=== PATIENT | female | born 1945 | race Caucasian/White ===

== ENCOUNTER → 2016-11-26 | Outpatient (CLI) | payer MEDICARE ==
--- NOTE | 2016-11-30 09:07 | MM ---
Reason for exam: screening (asymptomatic). Last mammogram was performed 1 year and 4 months ago. History: Patient is postmenopausal and history of other cancer. Family history of premenopausal breast cancer in paternal cousin at age 16. Excisional biopsy of the left breast, August 10, 2007. Benign excisional biopsy of the left breast, May 30, 1998. Excisional biopsy of the left breast, May 30, 1998. Took estrogen for 15 years 2 months beginning at age 47. Physical Findings: A clinical breast exam by your physician is recommended on an annual basis and results should be correlated with mammographic findings. MG Screening Mammo w CAD Bilateral CC and MLO view(s) were taken. Prior study comparison: August 01, 2015, bilateral MG 3d screening mammo w/cad. May 07, 2014, bilateral MG screening mammo w CAD. There are scattered fibroglandular densities. No significant changes when compared with prior studies. ASSESSMENT: Negative, BI-RAD 1 RECOMMENDATION: Routine screening mammogram of both breasts in 1 year.
== END | disposition home or self-care (01) ==
LOC: RADMAMWWP 14:25
PROVIDERS: ATTEND Family Medicine
DX: Z12.31 Encounter for screening mammogram for malignant neoplasm of breast (principal)

== ENCOUNTER → 2017-06-09 | Outpatient (CLI) | payer MEDICARE ==
--- NOTE | 2017-06-28 14:51 | EM ---
EVENT MONITOR The patient was monitored between June 09 and June 22, 2017. The rhythm strip available showed a sinus mechanism with episode of sinus tachycardia. This there was no evidence of ventricular ectopic activity or significant pauses. Single PACs were noted. TRISH / HARRIET: [id number] /
== END | disposition home or self-care (01) ==
LOC: RADECHMAIN 11:42
PROVIDERS: ATTEND Family Medicine
DX: I49.1 Atrial premature depolarization (principal)
CPT/HCPCS: 93270; 93271

== ENCOUNTER → 2017-12-27 | Outpatient (CLI) | payer MEDICARE ==
--- NOTE | 2017-12-29 11:05 | MM ---
Reason for exam: screening (asymptomatic). Last mammogram was performed 1 year and 1 month ago. History: Patient is postmenopausal and history of other cancer. Family history of premenopausal breast cancer in paternal cousin at age 16. Excisional biopsy of the left breast, August 10, 2007. Benign excisional biopsy of the left breast, May 30, 1998. Excisional biopsy of the left breast, May 30, 1998. Took estrogen for 15 years 2 months beginning at age 47. Physical Findings: A clinical breast exam by your physician is recommended on an annual basis and results should be correlated with mammographic findings. MG 3D Screening Mammo W/Cad Bilateral CC and MLO view(s) were taken. Prior study comparison: November 26, 2016, bilateral MG screening mammo w CAD. August 01, 2015, bilateral MG 3d screening mammo w/cad. There are scattered fibroglandular densities. Benign appearing bilateral calcifications. No suspicious abnormality. Post biopsy change on the left breast. No significant changes when compared with prior studies. ASSESSMENT: Benign, BI-RAD 2 RECOMMENDATION: Routine screening mammogram of both breasts in 1 year.
== END | disposition home or self-care (01) ==
LOC: RADMAMWWP 13:22
PROVIDERS: ATTEND Specialist
DX: Z12.31 Encounter for screening mammogram for malignant neoplasm of breast (principal)
CPT/HCPCS: 77063; 77067

== ENCOUNTER → 2019-01-24 | Outpatient (CLI) | payer MEDICARE ==
--- NOTE | 2019-01-26 13:45 | MM ---
Reason for exam: screening (asymptomatic). Last mammogram was performed 1 year and 1 month ago. History: Patient is postmenopausal and has history of other cancer at age 49. Family history of premenopausal breast cancer in paternal cousin at age 16. Excisional biopsy of the left breast, August 10, 2007. Benign excisional biopsy of the left breast, May 30, 1998. Excisional biopsy of the left breast, May 30, 1998. Took estrogen for 15 years 2 months beginning at age 47. Physical Findings: A clinical breast exam by your physician is recommended on an annual basis and results should be correlated with mammographic findings. MG 3D Screening Mammo W/Cad Bilateral CC and MLO view(s) were taken. Prior study comparison: December 27, 2017, bilateral MG 3d screening mammo w/cad. November 26, 2016, bilateral MG screening mammo w CAD. There are scattered fibroglandular densities. Stable benign calcifications. There is no discrete abnormality. No significant changes when compared with prior studies. ASSESSMENT: Benign, BI-RAD 2 RECOMMENDATION: Routine screening mammogram of both breasts in 1 year.
== END | disposition home or self-care (01) ==
LOC: RADMAMWWP 13:18
PROVIDERS: ATTEND Specialist
DX: Z12.31 Encounter for screening mammogram for malignant neoplasm of breast (principal)
CPT/HCPCS: 77063; 77067

== ENCOUNTER → 2019-01-31 | Outpatient (CLI) | payer MEDICARE ==
[2019-01-31 14:41] VITALS: BP 144/75; PULSE 80; TEMP 98.2; BMI 27.0
--- NOTE | 2019-01-31 21:13 | P.BASOAP ---
Subjective Progress Note Date: 01/31/19 Principal diagnosis: Morbid obesity Patient returns for evaluation. Last seen in May. She is 3 years postop. Slight weight gain. 10 pounds since this August. Some reflux at times. Takes Carafate on an as-needed basis along with her omeprazole. Objective - Vital Signs Vital signs: Vital Signs Temp 98.2 F 01/31/19 14:27 Pulse 80 01/31/19 14:27 Resp BP 144/75 01/31/19 14:27 Pulse Ox Intake & Output 01/31/19 01/31/19 02/01/19 06:59 18:59 06:59 Weight 80.739 kg - Exam Abdomen: Soft, nontender, nondistended Assessment/Plan (1) Morbid obesity Narrative/Plan: Patient doing fairly well after previously gastrectomy. Continue dietary and exercise regimen. We'll refill prescription for Carafate to be used when necessary. Follow-up 3-6 months. Plan: Date: 01/31/19 Initial Weight: Initial BMI: Current Weight: 80.739 kg Current BMI: 27.0 Type of Surgery: Total Volume in Band: Previous Volume: Volume Removed: Volume Added: Band Size:
== END | disposition home or self-care (01) ==
LOC: BARWHC3 14:06
PROVIDERS: ATTEND Surgery
DX: E66.01 Morbid (severe) obesity due to excess calories (principal); Z68.27 Body mass index [BMI] 27.0-27.9, adult
CPT/HCPCS: 99201

== ENCOUNTER 2019-07-21 14:04 | Observation (INO) | payer MEDICARE ==
[2019-07-21] MEDS ORDERED: DILTIAZEM DRIP BOLUS FROM BAG 1 MG SOLN IV ONE (14:45)
[2019-07-21] MEDS ORDERED: SODIUM CHLORIDE 0.9% 1,000 ML IV STA (14:45)
[2019-07-21] MEDS ORDERED: DILTIAZEM 125 MG in SODIUM CHLORIDE 0.9% 100 ML IV SCH (14:45)
--- NOTE | 2019-07-21 14:47 | ED ---
Arrhythmia/Palpitations HPI - General Chief Complaint: Arrhythmia/Palpitations Stated Complaint: sob Time Seen by Provider: 07/21/19 14:16 Source: patient, RN notes reviewed, old records reviewed Mode of arrival: ambulatory Limitations: no limitations - History of Present Illness Initial Comments: This is a 73-year-old female DF for evaluation patient Dese for evaluation regarding elevated heart rate palpitations high blood pressure. Patient is no recent travel history or sick contacts. Patient states she has not been feeling well is mainly today palpitations for a few hours that she gets in the past this time is much worse she felt very lightheaded and dizzy no is her blood pressure to also be severely elevated. Patient admits to severe anxiety over sent but no significant shortness of breath or sweating MD Complaint: rapid heart beat, "heart racing", "skipped beats", palpitations -: hour(s) Context: occurred during rest Associated Symptoms: anxiety Treatments Prior to Arrival: other (None) - Related Data Home Medications Medication Instructions Recorded Confirmed Montelukast [Singulair] 10 mg PO HS 02/01/19 07/21/19 Omeprazole 20 mg PO DAILY 02/02/19 07/21/19 Acetaminophen Tab [Tylenol] 650 mg PO DAILY PRN 07/21/19 07/21/19 Atorvastatin Calcium [Lipitor] 10 mg PO HS 07/21/19 07/21/19 Beclomethasone Dip 80 Mcg/Puff 2 puff INHALATION RT-BID 07/21/19 07/21/19 [Qvar 80 mcg] Calcium Carb/Vitamin D3/Vit K1 1 tab PO BID 07/21/19 07/21/19 [Citracal Soft Chew] Furosemide [Lasix] 20 mg PO DAILY@1200 07/21/19 07/21/19 Omalizumab [Xolair] 150 mg SQ Q28D 07/21/19 07/21/19 Potassium Chloride [Klor-Con 20] 20 meq PO DAILY@119907/21/19 07/21/19 Sucralfate [Carafate] 1 gm PO TID 07/21/19 07/21/19 rOPINIRole HCL [Requip] 2 mg PO QID 07/21/19 07/21/19 Allergies Allergy/AdvReac Type Severity Reaction Status Date / Time acetaminophen Allergy Unknown Verified 06/05/20 14:56 [From Tylenol-Codeine #3] codeine Allergy Unknown Verified 07/21/19 14:56 [From Tylenol-Codeine #3] Sulfa (Sulfonamide Allergy Anaphylaxis Verified 07/21/19 14:56 Antibiotics) tramadol Allergy Unknown Verified 07/21/19 14:56 Review of Systems ROS Statement: Those systems with pertinent positive or pertinent negative responses have been documented in the HPI. ROS Other: All systems not noted in ROS Statement are negative. Past Medical History Past Medical History: Asthma, Hyperlipidemia History of Any Multi-Drug Resistant Organisms: None Reported Past Surgical History: Hysterectomy Additional Past Surgical History / Comment(s): ear dumb reconstuction, cycst removal , gastric sleeve, wrist sx , foot sx Smoking Status: Former smoker Past Alcohol Use History: Occasional Past Drug Use History: None Reported General Exam Limitations: no limitations General appearance: alert, in no apparent distress, anxious Head exam: Present: atraumatic, normocephalic, normal inspection Eye exam: Present: normal appearance, PERRL, EOMI. Absent: scleral icterus, conjunctival injection, periorbital swelling ENT exam: Present: normal exam, mucous membranes moist Neck exam: Present: normal inspection. Absent: tenderness, meningismus, lymphadenopathy Respiratory exam: Present: normal lung sounds bilaterally. Absent: respiratory distress, wheezes, rales, rhonchi, stridor Cardiovascular Exam: Present: normal rhythm, tachycardia, irregular rhythm, normal heart sounds. Absent: systolic murmur, diastolic murmur, rubs, gallop, clicks GI/Abdominal exam: Present: soft, normal bowel sounds. Absent: distended, tenderness, guarding, rebound, rigid Extremities exam: Present: normal inspection, full ROM, normal capillary refill. Absent: tenderness, pedal edema, joint swelling, calf tenderness Back exam: Present: normal inspection Neurological exam: Present: alert, oriented X3, CN II-XII intact Psychiatric exam: Present: normal affect, normal mood Skin exam: Present: warm, dry, intact, normal color. Absent: rash Course Vital Signs 07/21/19 07/21/19 07/21/19 14:07 14:51 15:15 Temperature 98.0 F 97.7 F Pulse Rate 53 L 151 H 141 H Pulse Rate [ 151 H Clam Digger ] Respiratory 18 18 Rate Blood Pressure 162/75 132/85 132/85 O2 Sat by Pulse 98 97 97 Oximetry 07/21/19 07/21/19 15:22 15:24 Temperature Pulse Rate 96 95 Pulse Rate [ Clam Digger ] Respiratory 16 18 Rate Blood Pressure 91/60 112/56 O2 Sat by Pulse 97 97 Oximetry - Reevaluation(s) Reevaluation #1: 07/21/19 17:19 Medical records reviewed Reevaluation #2: 07/21/19 17:19 Patient has improved rate control here in the ER and feels better - Consultations Consultation #1: Spoke with DAMASO to agree to admit patient EKG Findings - EKG Comments: EKG Findings:: EKG shows A. fib with RVR 144 QRS 82 QTC 464 Medical Decision Making - Medical Decision Making 73 female DF for evaluation patient is a palpitations significantly elevated heart rate\\ new onset atrial fibrillation with RVR will admit for cardiology evaluation and observation - Lab Data Result diagrams: 07/21/19 14:26 07/21/19 14:26 Lab Results 07/21/19 07/21/19 07/21/19 Range/Units 14:26 14:26 14:26 WBC 10.1 (3.8-10.6) k/uL RBC 4.93 (3.80-5.40) m/uL Hgb 14.5 (11.4-16.0) gm/dL Hct 43.5 (34.0-46.0) % MCV 88.3 (80.0-100.0) fL MCH 29.5 (25.0-35.0) pg MCHC 33.4 (31.0-37.0) g/dL RDW 15.1 (11.5-15.5) % Plt Count 195 (150-450) k/uL Neutrophils % 59 % Lymphocytes % 33 % Monocytes % 4 % Eosinophils % 1 % Basophils % 1 % Neutrophils # 5.9 (1.3-7.7) k/uL Lymphocytes # 3.3 (1.0-4.8) k/uL Monocytes # 0.4 (0-1.0) k/uL Eosinophils # 0.1 (0-0.7) k/uL Basophils # 0.1 (0-0.2) k/uL PT 9.9 (9.0-12.0) sec INR 0.9 (<1.2) APTT 23.7 (22.0-30.0) sec D-Dimer (<0.60) mg/L FEU Sodium 139 (137-145) mmol/L Potassium 4.5 (3.5-5.1) mmol/L Chloride 106 (98-107) mmol/L Carbon Dioxide 22 (22-30) mmol/L Anion Gap 11 mmol/L BUN 23 H (7-17) mg/dL Creatinine 0.79 (0.52-1.04) mg/dL Est GFR (CKD-EPI)AfAm 86 (>60 ml/min/1.73 sqM) Est GFR (CKD-EPI)NonAf 75 (>60 ml/min/1.73 sqM) Glucose 113 H (74-99) mg/dL Calcium 9.9 (8.4-10.2) mg/dL Magnesium 1.9 (1.6-2.3) mg/dL Total Bilirubin 0.4 (0.2-1.3) mg/dL AST 30 (14-36) U/L ALT 25 (4-34) U/L Alkaline Phosphatase 94 (38-126) U/L Troponin I (0.000-0.034) ng/mL Total Protein 8.3 H (6.3-8.2) g/dL Albumin 4.5 (3.5-5.0) g/dL TSH (0.465-4.680) mIU/L 07/21/19 07/21/19 07/21/19 Range/Units 14:26 14:26 14:26 WBC (3.8-10.6) k/uL RBC (3.80-5.40) m/uL Hgb (11.4-16.0) gm/dL Hct (34.0-46.0) % MCV (80.0-100.0) fL MCH (25.0-35.0) pg MCHC (31.0-37.0) g/dL RDW (11.5-15.5) % Plt Count (150-450) k/uL Neutrophils % % Lymphocytes % % Monocytes % % Eosinophils % % Basophils % % Neutrophils # (1.3-7.7) k/uL Lymphocytes # (1.0-4.8) k/uL Monocytes # (0-1.0) k/uL Eosinophils # (0-0.7) k/uL Basophils # (0-0.2) k/uL PT (9.0-12.0) sec INR (<1.2) APTT (22.0-30.0) sec D-Dimer 0.32 (<0.60) mg/L FEU Sodium (137-145) mmol/L Potassium (3.5-5.1) mmol/L Chloride (98-107) mmol/L Carbon Dioxide (22-30) mmol/L Anion Gap mmol/L BUN (7-17) mg/dL Creatinine (0.52-1.04) mg/dL Est GFR (CKD-EPI)AfAm (>60 ml/min/1.73 sqM) Est GFR (CKD-EPI)NonAf (>60 ml/min/1.73 sqM) Glucose (74-99) mg/dL Calcium (8.4-10.2) mg/dL Magnesium (1.6-2.3) mg/dL Total Bilirubin (0.2-1.3) mg/dL AST (14-36) U/L ALT (4-34) U/L Alkaline Phosphatase (38-126) U/L Troponin I <0.012 (0.000-0.034) ng/mL Total Protein (6.3-8.2) g/dL Albumin (3.5-5.0) g/dL TSH 0.144 L (0.465-4.680) mIU/L - Radiology Data Radiology results: report reviewed (Chest x-rays negative for acute disease), image reviewed Critical Care Time Critical Care Time: Yes Total Critical Care Time: 31 Disposition Clinical Impression: Atrial fibrillation, Atrial fibrillation with RVR Disposition: ADMITTED IP TO THIS [facility] Condition: Good Is patient prescribed a controlled substance at d/c from ED?: No Referrals: Tonia Sepulveda MD [Primary Care Provider] - 1-2 days
[2019-07-21 15:10] LABS: Basophils # (A) 0.1 k/uL (0-0.2); Basophils % (A) 1 %; Eosinophils # (A) 0.1 k/uL (0-0.7); Eosinophils % (A) 1 %; HCT 43.5 % (34.0-46.0); HGB 14.5 gm/dL (11.4-16.0); Lymphocytes # (A) 3.3 k/uL (1.0-4.8); Lymphocytes % (A) 33 %; MCH 29.5 pg (25.0-35.0); MCHC 33.4 g/dL (31.0-37.0); MCV 88.3 fL (80.0-100.0); Mean Platelet Volume 7.4; Monocytes # (A) 0.4 k/uL (0-1.0); Monocytes % (A) 4 %; Neutrophils # (A) 5.9 k/uL (1.3-7.7); Neutrophils % (A) 59 %; Platelet Count 195 k/uL (150-450); RBC 4.93 m/uL (3.80-5.40); RDW 15.1 % (11.5-15.5); WBC 10.1 k/uL (3.8-10.6)
--- NOTE | 2019-07-21 15:17 | XR ---
EXAMINATION TYPE: XR chest 2V DATE OF EXAM: 07/21/2019 COMPARISON: Chest x-ray May 30, 2015 HISTORY: Palpitations and shortness of breath TECHNIQUE: Frontal and lateral views of the chest are obtained. FINDINGS: Background chronic emphysematous and parenchymal fibrotic changes without suspicious new f ocal air space opacity, pleural effusion, or pneumothorax seen. The cardiac silhouette size is stabl e and upper limits of normal with atherosclerotic aorta. The osseous structures are demineralized. IMPRESSION: Chronic changes without acute pulmonary process.
[2019-07-21 15:28] LABS: Albumin 4.5 g/dL (3.5-5.0); Calcium 9.9 mg/dL (8.4-10.2); Magnesium 1.9 mg/dL (1.6-2.3); Potassium 4.5 mmol/L (3.5-5.1); Total Bilirubin 0.4 mg/dL (0.2-1.3); Total Protein 8.3 g/dL (6.3-8.2)
[2019-07-21 15:37] LABS: INR 0.9 (<1.2); Partial Thromboplastin Time 23.7 sec (22.0-30.0); Prothrombin Time 9.9 sec (9.0-12.0)
[2019-07-21] MEDS ORDERED: ASPIRIN 81 MG PO STA (17:16)
[2019-07-21] MEDS ORDERED: NITROGLYCERIN SL TABS 0.4 MG TAB SUBLINGUAL PRN (17:16)
[2019-07-21] MEDS ORDERED: HEPARIN SODIUM,PORCINE 5,000 UNIT/ML 1 ML VIAL IV STA (17:17)
[2019-07-21] MEDS: HEPARIN SOD,PORK IN 0.45% NACL 25,000 UNIT in 0.45% NACL 1 250ML.BAG IV SCH (18:16)
[2019-07-21 18:30] LABS: T4, Free (Free Thyroxine) 1.25 ng/dL (0.78-2.19)
[2019-07-21] MEDS: FLUTICASONE 110 MCG INHALER INHALATION SCH (20:11)
[2019-07-21] MEDS: MONTELUKAST 10 MG TAB PO SCH (21:03)
[2019-07-21] MEDS: ATORVASTATIN 10 MG TAB PO SCH (21:03)
[2019-07-21] MEDS: METOPROLOL TARTRATE 25 MG TAB PO SCH (21:03)
[2019-07-21] MEDS ORDERED: ACETAMINOPHEN TAB 325 MG TAB PO PRN (23:18)
[2019-07-22] MEDS ORDERED: ALPRAZolam 0.25 MG TAB PO PRN (00:05)
[2019-07-22] MEDS: PANTOPRAZOLE 40 MG TABLET PO SCH (06:37)
[2019-07-22 07:04] LABS: Mean Platelet Volume 8.1; Platelet Count 139 k/uL (150-450)
[2019-07-22 07:36] LABS: Cholesterol 184 mg/dL (<200); Triglycerides 34 mg/dL (<150)
[2019-07-22 07:43] LABS: LDL Cholesterol,Calculated 46 mg/dL (0-99)
[2019-07-22 07:46] LABS: HDL Cholesterol 131 mg/dL (40-60)
--- NOTE | 2019-07-22 07:56 | HP ---
HISTORY AND PHYSICAL DATE OF SERVICE: 07/22/2019 CHIEF COMPLAINT: Palpitations. HISTORY OF PRESENT ILLNESS: This 73-year-old woman with the past medical history of asthma, hyperlipidemia, DJD, history of rheumatoid arthritis, being followed Dr. Sepulveda in the outpatient setting was noted to have palpitations today. The patient came to [facility] and found to have atrial fibrillation with rapid ventricular rate. Patient's heart rate went up to 151. Patient started on Cardizem drip and admitted for further evaluation and treatment. There is no history of chest pain. No history of any headache, loss of consciousness, nausea, vomiting, diarrhea, fever, rigors, chills at this time. PAST HISTORY: Asthma, hyperlipidemia, history of DJD, rheumatoid arthritis, adenoidectomy, hysterectomy. HOME MEDICATIONS: 1. Vitamin D3 2000 daily. 2. Multivitamins 1 p.o. daily. 3. Cyanocobalamin weekly. 4. Tylenol 650 daily p.r.n. 5. Citracal 1 tablet p.o. b.i.d. 6. Klor-Con 20 mg p.o. daily. 7. Lasix 20 mg p.o. daily. 8. Lipitor 10 mg p.o. q.h.s. 9. Requip 2 mg p.o. q.i.d. 10.Qvar 2 puffs b.i.d. 11.Carafate 1 gram p.o. t.i.d. 12.Xolair 150 mg q.28 days. 13.Omeprazole 20 mg p.o. daily. 14.Singulair 10 mg q.h.s. ALLERGIES: TYLENOL NO.3, CODEINE, SULFA, ULTRAM. FAMILY HISTORY: History of CHF, diabetes, obesity. SOCIAL HISTORY: Previous history of smoking. Occasional alcohol intake. REVIEW OF SYSTEMS: ENT No history of diminished hearing or vision. CARDIOVASCULAR As mentioned earlier. RESPIRATORY As mentioned earlier. GI No nausea, vomiting, or diarrhea. No dysuria or hematuria. NERVOUS No numbness or weakness. ALLERGY/IMMUNOLOGY No asthma or hayfever. MUSCULOSKELETAL As mentioned earlier. HEMATOLOGY/ONCOLOGY Negative. ENDOCRINE No history of diabetes or hypothyroidism. CONSTITUTIONAL As mentioned earlier. DERMATOLOGY Negative. RHEUMATOLOGY Negative, PSYCHIATRY As mentioned earlier. PHYSICAL EXAMINATION: Alert and oriented x3. Pulse is 141 and irregular, blood pressure 130/80, respiration 18, temperature 97.7, pulse ox 97% on 2 L. HEENT: Conjunctivae normal. Oral mucosa moist. NECK: No jugular venous distention. No lymph node enlargement. CARDIOVASCULAR: S1, S2. RESPIRATORY: Diminished breath sounds at the bases. No rhonchi, no crackles. ABDOMEN: Soft, nontender. No mass palpable. LEGS: No edema, no swelling. NERVOUS SYSTEM: Higher functions mentioned earlier. Moves all four limbs. No focal deficits. LYMPHATICS: No lymph node in neck or axilla. SKIN: No rash. JOINTS: No active deforming arthropathy. LABS: CBC within normal. Sodium 130, potassium 4.5, BUN is 23 and glucose 113. Total protein is 8.3. TSH 0.144 and free T3 and free T4 normal. ASSESSMENT: 1. Atrial fibrillation with a fast ventricular rate. 2. History of asthma. 3. Hyperlipidemia. 4. History of degenerative joint disease. 5. History of pneumonia. 6. History of rheumatoid arthritis. 7. History of adenoidectomy. 8. Remote history of nicotine dependence. RECOMMENDATIONS AND DISCUSSION: In this 73-year-old woman who presented with multiple complex medical issues, we will monitor the patient closely, recommend to continue the Cardizem drip, cardiology consultation, 2D echo with Doppler, full cardiac workup. Otherwise, the initial troponins are negative. We will continue to monitor. The EKG done in the ER showed some non-progression R-waves and a chest x-ray was also reviewed personally by me. Overall prognosis guarded. We will continue to monitor. The patient is started on IV heparin and chronic anticoagulation also will be arranged. MMODL / IJN: [id number] /
[2019-07-22] MEDS: FLUTICASONE 110 MCG INHALER INHALATION SCH ×2 (08:25→20:19)
[2019-07-22] MEDS: CHOLECALCIFEROL 1,000 UNIT TAB PO SCH (08:41)
[2019-07-22] MEDS: CALCIUM CARB-VIT D 500MG-200UN 1 EACH TAB PO SCH ×2 (08:42→21:08)
[2019-07-22] MEDS: MULTIVITAMINS, THERA 1 EACH TAB PO SCH (08:42)
[2019-07-22] MEDS: SUCRALFATE 1 GM TAB PO SCH ×3 (08:42→21:08)
[2019-07-22] MEDS: METOPROLOL TARTRATE 25 MG TAB PO SCH (08:43)
--- NOTE | 2019-07-22 08:45 | P.CRDCN ---
History of Present Illness History of present illness: This is Dr. Odonnell dictating a consult on this patient The patient was interviewed and examined IMPRESSION / ASSESSMENT: Paroxysmal atrial fibrillation RVR, symptomatic with low blood pressure Hypothyroidism, suppressed TSH Asthma High HDL Patient was converted to sinus rhythm EKG is normal Normal cardiac enzymes PLAN: Repeat twelve-lead ECG in sinus rhythm. This shows sinus rhythm with normal ST segments Treat hyperthyroidism In the interim she needs anti-coag ablation Suggest rate control medications preferably verapamil or diltiazem since she has a history of asthma Outpatient workup HPI patient presented with elevated heart rates palpitations and elevated blood pressure This time she got quite dizzy and lightheaded Past history of asthma and dyslipidemia Blood pressure 94/56 and 130/66 mmHg afebrile ROS: No fever chills or rigors, no cough, phlegm or expectoration, no nausea, vomiting or diarrhea, no hematuria, dysuria, no musculoskeletal complaints, no strokes or seizures, no skin lesions. EXAMINATION: 94/56 and 130 806 6 mmHg pulse rate is in the 60s and 70s now afebrile REVIEW OF LABS, ECG & MEDICAL DATA Twelve-lead ECG shows A. fib with RVR ventricular rate 144 beats a minute No acute pulmonary process on chest x-ray White count is normal 10.1, d-dimer is normal Sodium 139 potassium 4.5 BUN and creatinine is normal 3 troponins are normal TSH is suppressed at 0.144 HDL 131 LDL 46 Past Medical History Past Medical History: Asthma, Hyperlipidemia, Osteoarthritis (OA), Pneumonia, Rheumatoid Arthritis (RA) History of Any Multi-Drug Resistant Organisms: None Reported Past Surgical History: Adenoidectomy, Hysterectomy, Tonsillectomy Additional Past Surgical History / Comment(s): ear drum reconstuction,2 ear lobe resconstructions, cycst removal , gastric sleeve, wrist sx , foot sx Past Anesthesia/Blood Transfusion Reactions: No Reported Reaction Smoking Status: Former smoker Past Alcohol Use History: Occasional Past Drug Use History: None Reported - Past Family History Father Family Medical History: Congestive Heart Failure (CHF), Diabetes Mellitus Additional Family Medical History / Comment(s): obesity Mother Family Medical History: Congestive Heart Failure (CHF), Diabetes Mellitus, Hyperlipidemia, Hypertension Additional Family Medical History / Comment(s): hypokalemia, alzheimer Medications and Allergies Home Medications Medication Instructions Recorded Confirmed Type Montelukast [Singulair] 10 mg PO HS 02/01/19 07/21/19 History Omeprazole 20 mg PO DAILY 02/02/19 07/21/19 History Acetaminophen Tab [Tylenol] 650 mg PO DAILY PRN 07/21/19 07/21/19 History Atorvastatin Calcium [Lipitor] 10 mg PO HS 07/21/19 07/21/19 History Beclomethasone Dip 80 Mcg/Puff 2 puff INHALATION RT-BID 07/21/19 07/21/19 History [Qvar 80 mcg] Calcium Carb/Vitamin D3/Vit K1 1 tab PO BID 07/21/19 07/21/19 History [Citracal Soft Chew] Cholecalciferol [Vitamin D3 (25 2,000 unit PO DAILY 07/21/19 07/21/19 History Mcg = 1000 Iu)] Cyanocobalamin/Cobamamide [Vitamin 5,000 mcg PO WEEKLY 07/21/19 07/21/19 History B-12 5,000 Mcg Tab Sl] Furosemide [Lasix] 20 mg PO DAILY@1200 07/21/19 07/21/19 History Multivitamin [Multivitamins Adult 1 each PO DAILY 07/21/19 07/21/19 History Gummies] Omalizumab [Xolair] 150 mg SQ Q28D 07/21/19 07/21/19 History Potassium Chloride [Klor-Con 20] 20 meq PO DAILY@1200 07/21/19 07/21/19 History Sucralfate [Carafate] 1 gm PO TID 07/21/19 07/21/19 History rOPINIRole HCL [Requip] 2 mg PO QID 07/21/19 07/21/19 History Allergies Allergy/AdvReac Type Severity Reaction Status Date / Time acetaminophen Allergy Unknown Verified 07/21/19 14:56 [From Tylenol-Codeine #3] codeine Allergy Unknown Verified 07/21/19 14:56 [From Tylenol-Codeine #3] Sulfa (Sulfonamide Allergy Anaphylaxis Verified 07/21/19 14:56 Antibiotics) tramadol Allergy Unknown Verified 07/21/19 14:56 Physical Exam Vitals: Vital Signs Temp Pulse Pulse Pulse Resp BP BP 07/22/19 04:00 97.6 F 82 62 17 138/66 07/22/19 00:00 97.9 F 77 17 94/56 07/21/19 20:00 98.3 F 82 17 125/80 07/21/19 17:48 98.1 F 95 18 112/78 07/21/19 17:29 98.4 F 100 16 139/85 07/21/19 15:24 95 18 112/56 07/21/19 15:22 96 16 91/60 07/21/19 15:15 141 H 18 132/85 07/21/19 14:51 97.7 F 151 H 151 H 132/85 07/21/19 14:07 98.0 F 53 L 18 162/75 Pulse Ox 07/22/19 04:00 97 07/22/19 00:00 96 07/21/19 20:00 96 07/21/19 17:48 97 07/21/19 17:29 98 07/21/19 15:24 97 07/21/19 15:22 97 07/21/19 15:15 97 07/21/19 14:51 97 07/21/19 14:07 98 Intake and Output 07/21/19 07/22/19 07/22/19 22:59 06:59 14:59 Intake Total 36 40 Balance 36 40 Intake: Intake, IV Titration 36 40 Amount Diltiazem 125 mg In 36 40 Sodium Chloride 0.9% 100 ml @ 5 MG/HR 5 mls/hr IV .Q24H [facility] Rx#:[id number] Other: # Voids 1 Weight 80.739 kg 82.2 kg Results 07/22/19 06:26 07/21/19 14:26 Cardiac Enzymes 07/21/19 07/21/19 07/21/19 Range/Units 14:26 14:26 21:23 AST 30 (14-36) U/L Troponin I <0.012 <0.012 (0.000-0.034) ng/mL 07/22/19 Range/Units 00:15 AST (14-36) U/L Troponin I <0.012 (0.000-0.034) ng/mL Coagulation 07/21/19 07/22/19 07/22/19 Range/Units 14:26 00:15 06:26 PT 9.9 (9.0-12.0) sec APTT 23.7 46.3 H 48.2 H (22.0-30.0) sec Lipids 07/22/19 Range/Units 06:26 Triglycerides 34 (<150) mg/dL Cholesterol 184 (<200) mg/dL HDL Cholesterol 131 H (40-60) mg/dL CBC 07/21/19 07/22/19 Range/Units 14:26 06:26 WBC 10.1 (3.8-10.6) k/uL RBC 4.93 (3.80-5.40) m/uL Hgb 14.5 (11.4-16.0) gm/dL Hct 43.5 (34.0-46.0) % Plt Count 195 139 L (150-450) k/uL Comprehensive Metabolic Panel 07/21/19 Range/Units 14:26 Sodium 139 (137-145) mmol/L Potassium 4.5 (3.5-5.1) mmol/L Chloride 106 (98-107) mmol/L Carbon Dioxide 22 (22-30) mmol/L BUN 23 H (7-17) mg/dL Creatinine 0.79 (0.52-1.04) mg/dL Glucose 113 H (74-99) mg/dL Calcium 9.9 (8.4-10.2) mg/dL AST 30 (14-36) U/L ALT 25 (4-34) U/L Alkaline Phosphatase 94 (38-126) U/L Total Protein 8.3 H (6.3-8.2) g/dL Albumin 4.5 (3.5-5.0) g/dL Current Medications Generic Name Dose Route Start Last Admin Trade Name Freq PRN Reason Stop Dose Admin Acetaminophen 650 mg 07/21/19 23:18 Tylenol Tab PO DAILY PRN Pain Alprazolam 0.25 mg 07/22/19 00:05 Xanax PO TID PRN Anxiety Aspirin 325 mg 07/22/19 09:00 07/22/19 08:42 Aspirin PO 325 mg DAILY [facility] Administration Atorvastatin Calcium 10 mg 07/21/19 21:00 07/21/19 21:03 Lipitor PO 10 mg HS [facility] Administration Calcium Carbonate 1 each 07/22/19 09:00 07/22/19 08:42 Oscal 500+D PO 1 each BID [facility] Administration Cholecalciferol 2,000 unit 07/22/19 09:00 07/22/19 08:41 Vitamin D3 (25 Mcg = 1000 Iu) PO 2,000 unit DAILY [facility] Administration Fluticasone Propionate 2 puff 07/21/19 20:00 07/22/19 08:25 Flovent 110 Mcg Inhaler INHALATION 2 puff RT-BID [facility] Administration Furosemide 20 mg 07/22/19 12:00 Lasix PO DAILY@1200 [facility] Diltiazem HCl 125 mg/ Sodium 125 mls @ 5 mls/hr 07/21/19 14:45 07/21/19 22:30 Chloride IV 0 mg/hr .Q24H [facility] 0 mls/hr Infusion 5 MG/HR Heparin Sodium/Sodium Chloride 250 mls @ 9.689 mls/hr 07/21/19 17:30 07/21/19 18:16 25,000 unit/ Sodium Chloride IV 12 units/kg/hr .Q24H [facility] 9.689 mls/hr Administration Protocol 12 UNITS/KG/HR Metoprolol Tartrate 25 mg 07/21/19 21:00 07/22/19 08:43 Lopressor PO 25 mg BID [facility] Administration Montelukast Sodium 10 mg 07/21/19 21:00 07/21/19 21:03 Singulair PO 10 mg HS [facility] Administration Multivitamins 1 each 07/22/19 09:00 07/22/19 08:42 Theragran PO 1 each DAILY [facility] Administration Nitroglycerin 0.4 mg 07/21/19 17:16 Nitrostat SUBLINGUAL Q5M PRN Chest Pain Pantoprazole Sodium 40 mg 07/22/19 07:30 07/22/19 06:37 Protonix PO 40 mg DAILY@0730 [facility] Administration Potassium Chloride 20 meq 07/22/19 12:00 K-Dur 20 PO DAILY@1200 [facility] Ropinirole HCl 2 mg 07/21/19 22:00 07/22/19 08:42 Requip PO 2 mg QID [facility] Administration Sucralfate 1 gm 07/22/19 09:00 07/22/19 08:42 Carafate PO 1 gm TID [facility] Administration Intake and Output 07/21/19 07/22/19 07/22/19 22:59 06:59 14:59 Intake Total 36 40 Balance 36 40 Intake: Intake, IV Titration 36 40 Amount Diltiazem 125 mg In 36 40 Sodium Chloride 0.9% 100 ml @ 5 MG/HR 5 mls/hr IV .Q24H [facility] Rx#:[id number] Other: # Voids 1 Weight 80.739 kg 82.2 kg 07/22/19 06:26 07/21/19 14:26
[2019-07-22] MEDS ORDERED: ASPIRIN 325 MG TAB PO SCH (09:00)
[2019-07-22] MEDS: FUROSEMIDE 20 MG TAB PO SCH (12:01)
[2019-07-22] MEDS: POTASSIUM CHLORIDE ER 20 MEQ TAB.ER PO SCH (12:01)
[2019-07-22] MEDS: HEPARIN SOD,PORK IN 0.45% NACL 25,000 UNIT in 0.45% NACL 1 250ML.BAG IV SCH (15:22)
--- NOTE | 2019-07-22 15:56 | ECHOF ---
Referral Reason:afib MEASUREMENTS -------- HEIGHT: 172.7 cm WEIGHT: 79.4 kg BP: 138/66 IVSd: 1.1 cm (0.6 - 1.1) LVIDd: 3.3 cm (3.9 - 5.3) LVPWd: 1.2 cm (0.6 - 1.1) IVSs: 1.7 cm LVIDs: 2.4 cm LVPWs: 1.4 cm LA Diam: 3.2 cm (2.7 - 3.8) RVIDd: 2.8 cm (< 3.3) LAESV Index (A-L): 19.80 ml/m Ao Diam: 2.9 cm (2.0 - 3.7) AV Cusp: 2.1 cm (1.5 - 2.6) EPSS: 0.5 cm RAP: 5.00 mmHg RVSP: 25.10 mmHg MV EF SLOPE: 138.23 mm/s (70 - 150) MV EXCURSION: 19.44 mm (> 18.000) FINDINGS -------- Atrial fibrillation. This was a technically adequate study. The left ventricular size is normal. There is borderline concentric left ventricular hypertrophy. Overall left ventricular systolic function is normal with, an EF between 60 - 65 %. The right ventricle is normal in size. Normal LA size by volume 22+/-6 ml/m2. The right atrium is normal in size. Interatrial and interventricular septum intact. The aortic valve is trileaflet and appears structurally normal. The mitral valve is normal. Mild tricuspid regurgitation present. Right ventricular systolic pressure is normal at < 35 mmHg. There is no pulmonic regurgitation present. The aortic root size is normal. Normal inferior vena cava with normal inspiratory collapse consistent with estimated right atrial pre ssure of 5 mmHg. The inferior vena cava is mildly dilated. There is no pericardial effusion. CONCLUSIONS -------- 1. Atrial fibrillation. 2. This was a technically adequate study. 3. The left ventricular size is normal. 4. There is borderline concentric left ventricular hypertrophy. 5. Overall left ventricular systolic function is normal with, an EF between 60 - 65 %. 6. The right ventricle is normal in size. 7. Normal LA size by volume 22+/-6 ml/m2. 8. The right atrium is normal in size. 9. Interatrial and interventricular septum intact. 10. The aortic valve is trileaflet and appears structurally normal. 11. The mitral valve is normal. 12. Mild tricuspid regurgitation present. 13. Right ventricular systolic pressure is normal at < 35 mmHg. 14. There is no pulmonic regurgitation present. 15. The aortic root size is normal. 16. Normal inferior vena cava with normal inspiratory collapse consistent with estimated right atrial pressure of 5 mmHg. 17. The inferior vena cava is mildly dilated. 18. There is no pericardial effusion. [employer]: Hedy Cabrera RDCS
--- NOTE | 2019-07-22 20:29 | PN ---
PROGRESS NOTE DATE OF SERVICE: 07/22/2019 This 73-year-old woman was admitted with a atrial fibrillation with fast ventricular rate. Being closely monitored. The rhythm has returned to normal sinus rhythm. No chest pain. No palpitations. No fever. PHYSICAL EXAMINATION: Alert and oriented times three. Pulse 56, blood pressure 104/53, respiration 18, temperature 98 degrees, pulse ox 94% on room air. HEENT: Conjunctivae normal. NECK: No JVD. CARDIOVASCULAR: S1, S2 muffled. RESPIRATORY: Breath sounds diminished in the bases. No rhonchi. No crackles. ABDOMEN is soft, nontender. LEGS are no edema. No swelling. NERVOUS SYSTEM: No focal deficits. LABS: Platelets 139. Other labs are noted. is 131. ASSESSMENT: 1. Atrial fibrillation with a fast ventricular rate, paroxysmal atrial fibrillation. 2. History of asthma. 3. Thrombocytopenia. 4. Hyperlipidemia. 5. History of degenerative joint disease. 6. History of pneumonia. 7. History of rheumatoid arthritis. 8. History of adenoidectomy. 9. Remote history of nicotine dependence. RECOMMENDATIONS AND DISCUSSION: I recommend to continue current medication, continue symptomatic treatment. Otherwise, continue with IV heparin, oral anticoagulation on discharge. Prognosis guarded because of multiple complex medical issues. Closely follow with Cardiology. Further recommendations to follow. MMODL / IJN: [id number] / ANUSHA
[2019-07-22] MEDS: ATORVASTATIN 10 MG TAB PO SCH (21:08)
[2019-07-22] MEDS: MONTELUKAST 10 MG TAB PO SCH ×2 (21:08→21:11)
[2019-07-23 06:27] LABS: Basophils % (A) 0 %; Eosinophils # (A) 0.1 k/uL (0-0.7); Eosinophils % (A) 2 %; HCT 42.7 % (34.0-46.0); HGB 14.2 gm/dL (11.4-16.0); Lymphocytes # (A) 2.7 k/uL (1.0-4.8); Lymphocytes % (A) 45 %; MCH 29.3 pg (25.0-35.0); MCHC 33.2 g/dL (31.0-37.0); MCV 88.2 fL (80.0-100.0); Mean Platelet Volume 7.9; Monocytes # (A) 0.3 k/uL (0-1.0); Monocytes % (A) 5 %; Neutrophils # (A) 2.6 k/uL (1.3-7.7); Neutrophils % (A) 45 %; Platelet Count 167 k/uL (150-450); RBC 4.84 m/uL (3.80-5.40); WBC 5.9 k/uL (3.8-10.6)
[2019-07-23] MEDS: PANTOPRAZOLE 40 MG TABLET PO SCH (06:31)
[2019-07-23 06:47] LABS: African American GFR (CKD) >90 (>60 ml/min/1.73 sqM); Anion Gap 7 mmol/L; Blood Urea Nitrogen 20 mg/dL (7-17); Calcium 9.4 mg/dL (8.4-10.2); Carbon Dioxide 25 mmol/L (22-30); Chloride 105 mmol/L (98-107); Glucose 94 mg/dL (74-99); Non-African American GFR(CKD) 88 (>60 ml/min/1.73 sqM); Potassium 4.6 mmol/L (3.5-5.1); Sodium 137 mmol/L (137-145)
[2019-07-23] MEDS: CALCIUM CARB-VIT D 500MG-200UN 1 EACH TAB PO SCH (08:41)
[2019-07-23] MEDS: SUCRALFATE 1 GM TAB PO SCH (08:41)
[2019-07-23] MEDS: CHOLECALCIFEROL 1,000 UNIT TAB PO SCH (08:41)
[2019-07-23] MEDS: MULTIVITAMINS, THERA 1 EACH TAB PO SCH (08:41)
[2019-07-23 08:53] VITALS: TEMP 98
[2019-07-23] MEDS ORDERED: APIXABAN 5 MG TAB PO SCH (09:00)
[2019-07-23] MEDS ORDERED: VERAPAMIL 40 MG TAB PO SCH (09:00)
[2019-07-23] MEDS: FLUTICASONE 110 MCG INHALER INHALATION SCH (09:09)
[2019-07-23] MEDS: FUROSEMIDE 20 MG TAB PO SCH (12:09)
[2019-07-23] MEDS: POTASSIUM CHLORIDE ER 20 MEQ TAB.ER PO SCH (12:09)
[2019-07-23 12:23] VITALS: BP 121/78; PULSE 60; RESP 17
--- NOTE | 2019-07-23 12:59 | P.PN ---
Subjective Progress Note Date: 07/23/19 The patient is a 73-year-old female with past medical history of asthma and dyslipidemia, who initially presented to the emergency room for palpitations. She was found to be in atrial fibrillation with RVR, as well as hypotension. The patient is currently resting comfortably in the recliner chair. She denies any chest pain, chest pressure, palpitations, dyspnea, dizziness, or vertigo. She states she has been doing well since converting to sinus mechanism yesterday. GENERAL: Well-appearing, well-nourished and in no acute distress. NECK: Supple without JVD or thyromegaly. LUNGS: Breath sounds clear to auscultation bilaterally. Respiration equal and unlabored. No wheezes, rales or rhonchi. HEART: Regular rate and rhythm without murmurs, rubs or gallops. S1 and S2 heard. EXTREMITIES: Normal range of motion, no edema. No clubbing or cyanosis. Peripheral pulses intact and strong. LABS: WBC 5.9, hemoglobin 14.2, hematocrit 42.7, platelet 167, sodium 137, potassium 4.6, BUN 20, creatinine 0.64 VITALS: Blood pressure 103/51, heart rate 67, SpO2 98% on room air, temperature 90.8F IMPRESSION: #1 new-onset paroxysmal atrial fibrillation with RVR #2 hyperthyroidism #3 asthma #4 elevated HDL PLAN: Patient will be discussed discharged on verapamil and Eliquis twice a day. She was educated on the importance of her medication regimen and she will follow up in the office in 2 weeks. Objective - Vital Signs Vital signs: Vital Signs Temp 98 F 07/23/19 08:10 Pulse 60 07/23/19 12:22 Resp 17 07/23/19 12:22 BP 121/78 07/23/19 12:22 Pulse Ox 97 07/23/19 12:22 Intake & Output 07/22/19 07/23/19 07/23/19 18:59 06:59 18:59 Intake Total 1224.438 550.8 220 Balance 1224.438 550.8 220 Weight 82.3 kg Intake: IV 120 76.8 40 heparin 120 76.8 40 Intake, IV Titration 204.438 Amount Heparin Sod,Pork in 0.45% 204.438 NaCl 25,000 unit In 0.45 % NaCl 1 250ml.bag @ 12 UNITS/KG/HR 9.689 mls/hr IV .Q24H [facility] Rx#: [id number] Oral 900 474 180 Other: Voiding Method Toilet # Voids 1 1 1 - Labs CBC & Chem 7: 07/23/19 05:58 07/23/19 05:58 Labs: Abnormal Lab Results - Last 24 Hours (Table) 07/23/19 07/23/19 Range/Units 05:58 05:58 APTT 49.0 H (22.0-30.0) sec BUN 20 H (7-17) mg/dL
--- NOTE | 2019-07-24 06:15 | DS ---
DISCHARGE SUMMARY DATE OF SERVICE: 07/23/2019. FINAL DIAGNOSES: 1. Atrial fibrillation with a fast ventricular rate, paroxysmal atrial fibrillation. 2. History of asthma. 3. Thrombocytopenia. 4. Hyperlipidemia. 5. History of degenerative joint disease. 6. History of pneumonia. 7. History of rheumatoid arthritis. 8. History of adenoidectomy. 9. Remote history of nicotine dependence. DISCHARGE DISPOSITION: The patient will be discharged in stable condition with guarded prognosis. HISTORY OF PRESENT ILLNESS: This 73-year-old woman with a past medical history of multiple medical problems admitted with atrial fibrillation with fast ventricular rate. The patient was treated symptomatically with Cardizem. Patient improved significantly. Cardiology saw the patient and HDL was 131. COVID-19 was negative. On exam, vitals are stable. CARDIOVASCULAR: S1, S2 muffled. ABDOMEN: Soft. NERVOUS SYSTEM: No focal deficits. The patient discharged in a stable condition with guarded prognosis. A 2D echo with Doppler was done, evaluated by Cardiology which showed ejection fraction 60% to 65% and mild valvular abnormalities also. Please refer to 2-D echo for the report. DISCHARGE ADVICE: 1. Diet is cardiac. 2. Activity limited until followup. 3. Follow up with Dr. Sepulveda in 2 to 3 days. 4. Follow up with Cardiology, Dr. Odonnell, as recommended. MEDICATION: 1. Carafate 1 gram p.o. t.i.d. 2. Calcium with vitamin D one p.o. b.i.d. 3. Klor-Con 20 mEq p.o. 4. Lasix 20 mg p.o. daily. 5. Lipitor 10 mg at bedtime. 6. Multivitamins 1 p.o. daily. 7. Omeprazole 20 mg daily. 8. Qvar 2 puffs b.i.d. as before. 9. Requip 2 mg p.o. q.i.d. 10.Singulair 10 mg at bedtime. 11.Tylenol p.r.n. 12.Vitamin B12, 500 mcg p.o. daily. 13.Vitamin D3, 2000 daily. 14.Xolair 150 mg subcu q.28 days. 15.Eliquis 5 mg p.o. b.i.d. 16.Isoptin 40 mg p.o. b.i.d. Once again, the patient will be discharged in stable condition with guarded prognosis. MMODL / IJN: [id number] /
== END 2019-07-23 15:38 | disposition home or self-care (01) ==
LOC: EC 14:04 → 3SCARD 17:19
PROVIDERS: ADMIT Hospitalist; ATTEND Hospitalist
DX: I48.0 Paroxysmal atrial fibrillation (principal); R03.0 Elevated blood-pressure reading, without diagnosis of hypertension; F41.9 Anxiety disorder, unspecified; J45.909 Unspecified asthma, uncomplicated; E78.5 Hyperlipidemia, unspecified; E03.9 Hypothyroidism, unspecified; M19.90 Unspecified osteoarthritis, unspecified site; M06.9 Rheumatoid arthritis, unspecified; D69.6 Thrombocytopenia, unspecified; Z87.891 Personal history of nicotine dependence; Z87.01 Personal history of pneumonia (recurrent); Z82.49 Family history of ischemic heart disease and other diseases of the circulatory system; Z83.3 Family history of diabetes mellitus; Z83.438 Family history of other disorder of lipoprotein metabolism and other lipidemia; Z81.8 Family history of other mental and behavioral disorders; Z90.710 Acquired absence of both cervix and uterus; Z98.84 Bariatric surgery status; Z98.890 Other specified postprocedural states; Z79.51 Long term (current) use of inhaled steroids; Z79.899 Other long term (current) drug therapy; Z88.5 Allergy status to narcotic agent; Z88.2 Allergy status to sulfonamides
CPT/HCPCS: 96376 ×2; 96366 ×3; 96368 ×2; 93005 ×2; 96365; 99291; 36415; 94640 ×4; 93306; 85379; 84439; 84481; 80061; 80053; 80048; 83735; 84443; 84484 ×2; 85025 ×2; 85049; 85610; 85730 ×3; 71046; G0378 ×3; U0003; J1644 ×3

== ENCOUNTER → 2019-08-09 | Outpatient (CLI) | payer MEDICARE ==
--- NOTE | 2019-08-09 15:28 | US ---
EXAMINATION TYPE: US thyroid st tissue head/neck DATE OF EXAM: 08/09/2019 COMPARISON: NONE CLINICAL HISTORY: E05.90 THYROTOXICOSIS. abn labs GLAND SIZE: Right Lobe: 4.5 x 1.4 x 1.5 cm Overall Parenchyma: homogenous Left Lobe: 4.1 x 1.3 x 1.5 cm Overall Parenchyma: homogeneous Isthmus Thickness: 0.2 cm NODULES RIGHT: # of nodules measured on right: 0 LEFT: # of nodules measured on left: 1 1. 0.4 X 0.5 x 0.3 cm hypoechoic nodule at the lower pole with well-defined margins. This nodule is wider than tall and shows intranodular vascularity. Prior size: No prior ISTHMUS: # of nodules measured in the isthmus: 0 Bilateral neck scanned, no evidence of lymphadenopathy. IMPRESSION: Subcentimeter nonspecific nodule right thyroid lobe.
== END | disposition home or self-care (01) ==
LOC: RADUSWWP 14:12
PROVIDERS: ATTEND Family Medicine
DX: E04.1 Nontoxic single thyroid nodule (principal)
CPT/HCPCS: 76536

== ENCOUNTER → 2019-08-29 | Outpatient (CLI) | payer MEDICARE ==
[2019-08-29 18:47] LABS: T4, Free (Free Thyroxine) 1.3 ng/dL (0.80-1.80)
== END | disposition home or self-care (01) ==
LOC: LABWHC1 10:48
PROVIDERS: ATTEND Internal Medicine
DX: R94.6 Abnormal results of thyroid function studies (principal)
CPT/HCPCS: 36415; 84439; 84443; 84481

== ENCOUNTER → 2020-01-23 | Outpatient (CLI) | payer MEDICARE ==
[2020-01-23 20:32] LABS: African American GFR (CKD) 83.6 (60.0-200.0); Anion Gap 9.7 mmol/L (4.00-12.00); Calcium 9.7 mg/dL (8.7-10.3); Carbon Dioxide 26.3 mmol/L (21.6-31.8); Magnesium 1.8 mg/dL (1.5-2.4); Non-African American GFR(CKD) 72.1 (60.0-200.0); Potassium 4.9 mmol/L (3.5-5.5)
== END | disposition home or self-care (01) ==
LOC: LABWHC1 12:39
PROVIDERS: ATTEND Nurse Practitioner Adult Health
DX: I10 Essential (primary) hypertension (principal)
CPT/HCPCS: 36415; 80048; 83735

== ENCOUNTER → 2020-02-20 | Outpatient (CLI) | payer MEDICARE ==
--- NOTE | 2020-02-20 17:06 | BD ---
EXAMINATION TYPE: Axial Bone Density DATE OF EXAM: 02/20/2020 COMPARISON: 08.01.2015 CLINICAL HISTORY: 74 YR OLD FEMALE......ICD-10 CODE: Z31.820 OSTEOPOROSIS SCREENING Height: 66 Weight: 183 FRAX RISK QUESTIONS: Alcohol (3 or more units per day): YES Glucocorticoids (More than 3mos): YES (Ex: prednisone, prednisolone, methylprednisolone, dexamethasone, and hydrocortisone). History of Fracture in Adulthood: YES RISK FACTORS HISTORY OF: LT FOOT FRACTURE AN ADULT Family History of Osteoporosis: YES, MOTHER, SISTER AND MATERNAL AUNT WITH BOTH HIPS FRACUTRED Postmenopausal woman: YES, AT ABOUT 48RS OLD Take estrogen and/or progesterone medications: YES, FOR 15 YRS, Hyperparathyroidism: NO Adrenal Insufficiency: NO MEDICATIONS: Prednisone or other steroids: YES, FOR ASTHMA, PREDNISONE ON AND OFF FOR MANY YRS, INHALERS AND SINGU LAR, Q-ALLYSON Additional Medications: SINGULAIR, ADVAIR, PROAIR PRN, REQUIP, HX OF RADIATION, REFLUX MEDS, STATION FOR CHOLESTEROL, VIT D AND CALCIUM Additional History: GURD, ASTHMA, 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 Bone mineral density as measured about the Lumbar spine is: ----- L1-L4(G/cm2): 1.225 T Score Values are as follows: ----- L1: -0.9 ----- L2: -0.2 ----- L3: 0.6 ----- L4: 1.4 ----- L1-L4: 0.4 Bone mineral density has: Increased 11.9% SINCE 08.01.2015 STUDY Bone mineral density about the R hip (g/cm2): 0.926 Bone mineral density about the L hip (g/cm2): 0.923 T Score values are as follows: -----R Neck: -1.2 -----L Neck: -1.0 -----R Total: -0.6 -----L Total: -0.7 Bone mineral density has: Decreased -13.6% SINCE THE08.01.2015 STUDY FRAX%s: THERE IS A 35.5% CHANCE FOR A MAJOR OSTEOPOROTIC FX AND A 17.3% FOR HIP......PROBABILITY FOR FX IN 10 YRS TIME IMPRESSION: Osteopenia (T Score between -2.5 and -1). There is slightly increased risk of fracture and the patient may be considered for treatment. Re-Screen 2-5 years. NOTE: T-SCORE=SD OF THE YOUNG ADULT MEAN.
== END | disposition home or self-care (01) ==
LOC: RADBDWWP 12:59
PROVIDERS: ATTEND Family Medicine
DX: M85.88 Other specified disorders of bone density and structure, other site (principal)
CPT/HCPCS: 77080

== ENCOUNTER → 2020-03-28 | Outpatient (CLI) | payer MEDICARE ==
--- NOTE | 2020-04-02 11:35 | MM ---
Reason for exam: screening (asymptomatic). Last mammogram was performed 1 year and 2 months ago. History: Patient is postmenopausal and has history of other cancer at age 49. Family history of premenopausal breast cancer in paternal cousin at age 16. Excisional biopsy of the left breast, August 10, 2007. Benign excisional biopsy of the left breast, May 30, 1998. Excisional biopsy of the left breast, May 30, 1998. Took estrogen for 15 years 2 months beginning at age 47. Physical Findings: A clinical breast exam by your physician is recommended on an annual basis and results should be correlated with mammographic findings. MG 3D Screening Mammo W/Cad Bilateral CC and MLO view(s) were taken. Prior study comparison: January 24, 2019, bilateral MG 3d screening mammo w/cad. December 27, 2017, bilateral MG 3d screening mammo w/cad. There are scattered fibroglandular densities. No significant changes when compared with prior studies. ASSESSMENT: Benign, BI-RAD 2 RECOMMENDATION: Routine screening mammogram of both breasts in 1 year.
== END | disposition home or self-care (01) ==
LOC: RADMAMWWP 12:35
PROVIDERS: ATTEND Family Medicine
DX: Z12.31 Encounter for screening mammogram for malignant neoplasm of breast (principal)
CPT/HCPCS: 77063; 77067

== ENCOUNTER → 2020-06-26 | Outpatient (CLI) | payer MEDICARE ==
[2020-06-27 04:12] LABS: T4, Free (Free Thyroxine) 1.4 ng/dL (0.80-1.80)
[2020-06-27 04:35] LABS: Ferritin 5.8 ng/mL (10.0-291.0)
== END | disposition home or self-care (01) ==
LOC: LABWHC1 11:38
PROVIDERS: ATTEND Internal Medicine
DX: E04.1 Nontoxic single thyroid nodule (principal); G25.81 Restless legs syndrome; D64.9 Anemia, unspecified; G95.89 Other specified diseases of spinal cord; R29.898 Other symptoms and signs involving the musculoskeletal system
CPT/HCPCS: 36415; 82607; 82728; 83540; 84439; 84443; 84481

== ENCOUNTER → 2020-07-01 | Outpatient (CLI) | payer MEDICARE ==
--- NOTE | 2020-07-02 15:59 | US ---
EXAMINATION TYPE: US thyroid st tissue head/neck DATE OF EXAM: 07/01/2020 COMPARISON: 08/09/2019 CLINICAL HISTORY: E04.1 Thyroid nodule. Follow up thyroid nodule GLAND SIZE: Right Lobe: 4.1 x 1.6 x 1.7 cm Overall Parenchyma: homogenous Left Lobe: 4.1 x 1.4 x 1.5 cm Overall Parenchyma: homogeneous Isthmus Thickness: 0.2 cm NODULES RIGHT: # of nodules measured on right: 0 LEFT: # of nodules measured on left: 1 1. 0.4 X 0.3 x 0.5 cm, lower , cystic, anechoic nodule, which is wider than tall, with smooth prateek ns, without echogenic foci. Prior size: 0.4 x 0.5 x 0.3 cm ISTHMUS: # of nodules measured in the isthmus: 0 Bilateral neck scanned, no evidence of lymphadenopathy. IMPRESSION: Stable cyst in the left lobe of the thyroid gland measuring 5 mm.
== END | disposition home or self-care (01) ==
LOC: RADUSWWP 14:43
PROVIDERS: ATTEND Internal Medicine
DX: E04.1 Nontoxic single thyroid nodule (principal)
CPT/HCPCS: 76536

== ENCOUNTER 2020-11-29 10:01 | Emergency (ER) | payer MEDICARE ==
[2020-11-29 10:23] VITALS: RESP 18
--- NOTE | 2020-11-29 10:35 | ED ---
Abdominal Pain HPI - General Chief Complaint: Abdominal Pain Stated Complaint: bowel impaction Time Seen by Provider: 11/29/20 10:27 Source: patient, RN notes reviewed Mode of arrival: wheelchair Limitations: no limitations - History of Present Illness Initial Comments: Patient is a 75-year-old female presenting to the ED for abdominal pain. Patient states she has not had a bowel movement since November 17 with increased discomfort since this time. patient reports worsening pain is right lower quadrant. Patient reports she has some nausea without vomiting, chills with decreased amount of oral intake. Patient states she stopped eating and she is worried "something is going to burst in her stomach" if she kept eating. patient denies any back pain or flank pain, with increased urination. patient had recent need knee surgery on right knee, was prescribed [place] for pain relief. Patient has been self medicating with MiraLAX and senna without relief or resolution of constipation. - Related Data Home Medications Medication Instructions Recorded Confirmed Montelukast [Singulair] 10 mg PO HS 02/01/19 07/21/19 Omeprazole 20 mg PO DAILY 02/02/19 07/21/19 Acetaminophen Tab [Tylenol] 650 mg PO DAILY PRN 07/21/19 07/21/19 Atorvastatin Calcium [Lipitor] 10 mg PO HS 07/21/19 07/21/19 Beclomethasone Dip 80 Mcg/Puff 2 puff INHALATION RT-BID 07/21/19 07/21/19 [Qvar 80 mcg] Calcium Carb/Vitamin D3/Vit K1 1 tab PO BID 07/21/19 07/21/19 [Citracal-D3 500 mg Soft Chew] Cholecalciferol [Vitamin D3 (25 2,000 unit PO DAILY 07/21/19 07/21/19 Mcg = 1000 Iu)] Cyanocobalamin/Cobamamide [Vitamin 5,000 mcg PO WEEKLY 07/21/19 07/21/19 B-12 5,000 Mcg Tab Sl] Furosemide [Lasix] 20 mg PO DAILY@1200 07/21/19 07/21/19 Multivitamin [Multivitamins Adult 1 each PO DAILY 07/21/19 07/21/19 Gummies] Omalizumab [Xolair] 150 mg SQ Q28D 07/21/19 07/21/19 Potassium Chloride [Klor-Con 20] 20 meq PO DAILY@1200 07/21/19 07/21/19 Sucralfate [Carafate] 1 gm PO TID 07/21/19 07/21/19 rOPINIRole HCL [Requip] 2 mg PO QID 07/21/19 07/21/19 Previous Rx's Medication Instructions Recorded Apixaban [Eliquis] 5 mg PO BID #60 tab 07/23/19 Verapamil [Isoptin] 40 mg PO BID #60 tab 07/23/19 Allergies Allergy/AdvReac Type Severity Reaction Status Date / Time acetaminophen Allergy Unknown Verified 11/29/20 10:23 [From Tylenol-Codeine #3] codeine Allergy Unknown Verified 11/29/20 10:23 [From Tylenol-Codeine #3] Sulfa (Sulfonamide Allergy Anaphylaxis Verified 11/29/20 10:23 Antibiotics) tramadol Allergy Unknown Verified 11/29/20 10:23 Review of Systems ROS Statement: Those systems with pertinent positive or pertinent negative responses have been documented in the HPI. ROS Other: All systems not noted in ROS Statement are negative. Past Medical History Past Medical History: Asthma, Hyperlipidemia, Osteoarthritis (OA), Pneumonia, Rheumatoid Arthritis (RA) Additional Past Medical History / Comment(s): restless leg syndrome History of Any Multi-Drug Resistant Organisms: None Reported Past Surgical History: Adenoidectomy, Hysterectomy, Joint Replacement, Tonsillectomy Additional Past Surgical History / Comment(s): ear drum reconstuction,2 ear lobe resconstructions, cycst removal , gastric sleeve, wrist sx , foot sx Past Anesthesia/Blood Transfusion Reactions: No Reported Reaction Past Psychological History: No Psychological Hx Reported Smoking Status: Former smoker Past Alcohol Use History: Occasional Past Drug Use History: None Reported - Past Family History Father Family Medical History: Congestive Heart Failure (CHF), Diabetes Mellitus Additional Family Medical History / Comment(s): obesity Mother Family Medical History: Congestive Heart Failure (CHF), Diabetes Mellitus, Hyperlipidemia, Hypertension Additional Family Medical History / Comment(s): hypokalemia, alzheimer General Exam Limitations: no limitations Course Vital Signs 11/29/20 10:18 Temperature 97.8 F Pulse Rate 93 Respiratory 18 Rate Blood Pressure 105/69 O2 Sat by Pulse 98 Oximetry Procedures - Rectal Disimpaction Consent Obtained: verbal consent Indication: fecal impaction Technique: manual disimpaction with gloved finger Result: significant stool output Complications: none Patient Tolerated Procedure: well, no complications Medical Decision Making - Medical Decision Making X-ray showed moderate stool patient received enema, digital disimpaction. Patient feels greatly improved at discharge in stable condition advised to add fibers daily source, may have to discontinue pain meds secondary to constipation Disposition Clinical Impression: Constipation Disposition: HOME SELF-CARE Condition: Stable Instructions (If sedation given, give patient instructions): Constipation (ED) Additional Instructions: Please return to the Emergency Department if symptoms worsen or any other concerns. Is patient prescribed a controlled substance at d/c from ED?: No Referrals: Tonia Sepulveda MD [Primary Care Provider] - 1-2 days Time of Disposition: 13:25
--- NOTE | 2020-11-29 11:14 | XR ---
EXAMINATION TYPE: XR KUB DATE OF EXAM: 11/29/2020 11:08 AM CLINICAL HISTORY: Abdominal pain. TECHNIQUE: Two Upright KUB images of the abdomen are obtained. COMPARISON: CT 2012 FINDINGS: Scattered gas is seen in non-distended small bowel loops. Gas and fecal material is seen in non-distended colon along the periphery. Cholecystectomy clips are redemonstrated. Visualized lung b ases are clear. Underlying scoliosis or positioning is present currently. No free air. IMPRESSION: Overall nonobstructive bowel gas pattern.
[2020-11-29] MEDS ORDERED: MAGNESIUM HYDROXIDE 2,400 MG/10 ML CUP PO STA (11:22)
[2020-11-29 13:58] VITALS: BP 130/73; PULSE 80; TEMP 96.7
== END 2020-11-29 13:56 | disposition home or self-care (01) ==
LOC: EC 10:01
DX: K59.00 Constipation, unspecified (principal); J45.909 Unspecified asthma, uncomplicated; E78.5 Hyperlipidemia, unspecified; M19.90 Unspecified osteoarthritis, unspecified site; Z79.01 Long term (current) use of anticoagulants; Z88.1 Allergy status to other antibiotic agents; Z88.2 Allergy status to sulfonamides; Z88.5 Allergy status to narcotic agent; Z90.710 Acquired absence of both cervix and uterus; Z90.89 Acquired absence of other organs; Z87.891 Personal history of nicotine dependence
CPT/HCPCS: 74018; 99284

== ENCOUNTER → 2021-04-11 | Outpatient (CLI) | payer MEDICARE ==
--- NOTE | 2021-04-11 14:23 | US ---
EXAMINATION TYPE: US thyroid st tissue head/neck DATE OF EXAM: 04/11/2021 COMPARISON: US dated 07/03/2020 CLINICAL HISTORY: E041 NONTOXIC SINGLE THYROID NODULE. GLAND SIZE: Right Lobe: 5.2 x 1.8 x 1.5 cm Overall Parenchyma: homogenous Left Lobe: 4.5 x 1.5 x 1.3 cm Overall Parenchyma: homogeneous Isthmus Thickness: 0.2 cm NODULES RIGHT: # of nodules measured on right: 0 There are two subcentimeter cysts noted. LEFT: # of nodules measured on left: 1 1. 0.7 X 0.4 x 0.6 cm, lower mid, cystic or almost completely cystic, anechoic nodule, which is minnie ler than wide, with smooth margins, without echogenic foci. Prior size: 0.4 x 0.3 x 0.5 cm ISTHMUS: # of nodules measured in the isthmus: 0 Bilateral neck scanned, no evidence of lymphadenopathy. IMPRESSION: Nonspecific subcentimeter thyroid nodularity.
--- NOTE | 2021-04-14 13:32 | MM ---
Reason for exam: screening (asymptomatic). Last mammogram was performed 1 year ago. History: Patient is postmenopausal and has history of other cancer at age 49. Family history of premenopausal breast cancer in paternal cousin at age 16. Excisional biopsy of the left breast, August 10, 2007. Benign excisional biopsy of the left breast, May 30, 1998. Excisional biopsy of the left breast, May 30, 1998. Took estrogen for 15 years 2 months beginning at age 47. Physical Findings: A clinical breast exam by your physician is recommended on an annual basis and results should be correlated with mammographic findings. MG 3D Screening Mammo W/Cad Bilateral CC and MLO view(s) were taken. XCCL view(s) were taken of the left breast. Prior study comparison: March 28, 2020, bilateral MG 3d screening mammo w/cad. January 24, 2019, bilateral MG 3d screening mammo w/cad. There are scattered fibroglandular densities. No significant changes when compared with prior studies. ASSESSMENT: Benign, BI-RAD 2 RECOMMENDATION: Routine screening mammogram of both breasts in 1 year.
== END | disposition home or self-care (01) ==
LOC: RADUSWWP 13:30
PROVIDERS: ATTEND Family Medicine
DX: Z12.31 Encounter for screening mammogram for malignant neoplasm of breast (principal); E04.1 Nontoxic single thyroid nodule; Z78.0 Asymptomatic menopausal state; Z80.3 Family history of malignant neoplasm of breast
CPT/HCPCS: 76536; 77063; 77067

== ENCOUNTER 2021-12-17 17:46 | Emergency (ER) | payer MEDICARE ==
[2021-12-17 17:50] VITALS: RESP 16
--- NOTE | 2021-12-17 18:07 | ED ---
Chest Pain HPI - General Source: patient Mode of arrival: wheelchair Limitations: no limitations - History of Present Illness MD Complaint: chest pain -: hour(s) Onset: during rest Pain Location: left chest Pain Radiation: none Severity: mild Quality: other (Pinching) Consistency: constant Improves With: nothing Worsens With: nothing Treatments Prior to Arrival: none <Mohamud Cervantes - Last Filed: 12/17/21 18:11> <Vin Mcneil - Last Filed: 12/17/21 22:14> - General Chief Complaint: Chest Pain Stated Complaint: chest pain Time Seen by Provider: 12/17/21 17:59 - Related Data Home Medications Medication Instructions Recorded Confirmed Montelukast [Singulair] 10 mg PO HS 02/01/19 07/21/19 Omeprazole 20 mg PO DAILY 02/02/19 07/21/19 Acetaminophen Tab [Tylenol] 650 mg PO DAILY PRN 07/21/19 07/21/19 Atorvastatin Calcium [Lipitor] 10 mg PO HS 07/21/19 07/21/19 Beclomethasone Dip 80 Mcg/Puff 2 puff INHALATION RT-BID 07/21/19 07/21/19 [Qvar 80 mcg] Calcium Carb/Vitamin D3/Vit K1 1 tab PO BID 07/21/19 07/21/19 [Citracal-D3 500 mg Soft Chew] Cholecalciferol [Vitamin D3 (25 2,000 unit PO DAILY 07/21/19 07/21/19 Mcg = 1000 Iu)] Cyanocobalamin/Cobamamide [Vitamin 5,000 mcg PO WEEKLY 07/21/19 07/21/19 B-12 5,000 Mcg Tab Sl] Furosemide [Lasix] 20 mg PO DAILY@119907/21/19 07/21/19 Multivitamin [Multivitamins Adult 1 each PO DAILY 07/21/19 07/21/19 Gummies] Omalizumab [Xolair] 150 mg SQ Q28D 07/21/19 07/21/19 Potassium Chloride [Klor-Con 20] 20 meq PO DAILY@1200 07/21/19 07/21/19 Sucralfate [Carafate] 1 gm PO TID 07/21/19 07/21/19 rOPINIRole HCL [Requip] 2 mg PO QID 07/21/19 07/21/19 Previous Rx's Medication Instructions Recorded Apixaban [Eliquis] 5 mg PO BID #60 tab 07/23/19 Verapamil [Isoptin] 40 mg PO BID #60 tab 07/23/19 Allergies Allergy/AdvReac Type Severity Reaction Status Date / Time acetaminophen Allergy Unknown Verified 12/17/21 17:50 [From Tylenol-Codeine #3] codeine Allergy Unknown Verified 12/17/21 17:50 [From Tylenol-Codeine #3] Sulfa (Sulfonamide Allergy Anaphylaxis Verified 12/17/21 17:50 Antibiotics) tramadol Allergy Unknown Verified 12/17/21 17:50 Review of Systems ROS Other: All systems not noted in ROS Statement are negative. Constitutional: Denies: fever, chills Respiratory: Denies: cough, dyspnea Cardiovascular: Reports: chest pain. Denies: palpitations, edema, syncope Gastrointestinal: Denies: abdominal pain, nausea, vomiting, diarrhea Genitourinary: Denies: dysuria, hematuria Musculoskeletal: Denies: back pain Skin: Denies: rash Neurological: Denies: headache, weakness, numbness <Mohamud Cervantes - Last Filed: 12/17/21 18:11> ROS Other: All systems not noted in ROS Statement are negative. <Vin Mcneil - Last Filed: 12/17/21 22:14> ROS Statement: Those systems with pertinent positive or pertinent negative responses have been documented in the HPI. EKG Findings - EKG Results: EKG: interpreted by ERMD, sinus rhythm (Rate 83 bpm), normal axis, normal ST/T - Blocks, [place], Hypertrophy, ST Abn: AV and intraventricular conduction: right bundle branch block (fixed/intermittent, complete/incomplete) (Incomplete) <Mohamud Cervantes - Last Filed: 12/17/21 18:11> Past Medical History Past Medical History: Asthma, Hyperlipidemia, Osteoarthritis (OA), Pneumonia, Rheumatoid Arthritis (RA) Additional Past Medical History / Comment(s): restless leg syndrome History of Any Multi-Drug Resistant Organisms: None Reported Past Surgical History: Adenoidectomy, Hysterectomy, Joint Replacement, Tonsillectomy Additional Past Surgical History / Comment(s): ear drum reconstuction,2 ear lobe resconstructions, cycst removal , gastric sleeve, wrist sx , foot sx Past Anesthesia/Blood Transfusion Reactions: No Reported Reaction Past Psychological History: No Psychological Hx Reported Smoking Status: Former smoker Past Alcohol Use History: Occasional Past Drug Use History: None Reported - Past Family History Father Family Medical History: Congestive Heart Failure (CHF), Diabetes Mellitus Additional Family Medical History / Comment(s): obesity Mother Family Medical History: Congestive Heart Failure (CHF), Diabetes Mellitus, Hyperlipidemia, Hypertension Additional Family Medical History / Comment(s): hypokalemia, alzheimer <Mohamud Cervantes - Last Filed: 12/17/21 18:11> General Exam Limitations: no limitations General appearance: alert, in no apparent distress Head exam: Present: atraumatic, normocephalic Eye exam: Present: normal appearance. Absent: scleral icterus, conjunctival injection Neck exam: Present: normal inspection Respiratory exam: Present: normal lung sounds bilaterally. Absent: respiratory distress, wheezes, rales, rhonchi, stridor Cardiovascular Exam: Present: regular rate, normal rhythm, normal heart sounds. Absent: systolic murmur, diastolic murmur, rubs, gallop GI/Abdominal exam: Present: soft. Absent: distended, tenderness, guarding, rebound, rigid, mass Extremities exam: Present: normal inspection, normal capillary refill. Absent: pedal edema, calf tenderness Back exam: Present: normal inspection. Absent: CVA tenderness (R), CVA tenderness (L) Neurological exam: Present: alert Skin exam: Present: warm, dry, intact, normal color. Absent: rash <Mohamud Cervantes - Last Filed: 12/17/21 18:11> Course Vital Signs 12/17/21 12/17/21 12/17/21 17:48 19:29 21:00 Temperature 97.4 F L 98.2 F Pulse Rate 85 72 70 Respiratory 16 16 16 Rate Blood Pressure 168/79 115/51 120/91 O2 Sat by Pulse 96 96 96 Oximetry 12/17/21 12/17/21 21:31 22:02 Temperature 98.4 F Pulse Rate 71 66 Respiratory 16 16 Rate Blood Pressure 119/63 133/68 O2 Sat by Pulse 96 96 Oximetry Chest Pain MDM <Vin Mcneil - Last Filed: 12/17/21 22:14> - MDM 76-year-old female presenting for evaluation of chest pain. Patient's care had been signed out by previous physician awaiting repeat troponin testing. The patient had experienced some episodes of chest pain which were not typical in nature. No associated symptoms, no prior history of CAD, pain was intermittent central chest lasting a few minutes at a time without exertional worsening, no vomiting, no diaphoresis. Patient had agreed to second troponin emergency department these results were obtained and again were negative. The patient was eager for discharge. Return parameters discussed at length. (Vin Mcneil) Disposition <oMhamud Cervantes - Last Filed: 12/17/21 18:11> Is patient prescribed a controlled substance at d/c from ED?: No Time of Disposition: 22:14 <Vin Mcneil - Last Filed: 12/17/21 22:14> Clinical Impression: Atypical chest pain Disposition: HOME SELF-CARE Condition: Fair Instructions (If sedation given, give patient instructions): Chest Pain (ED) Referrals: Tonia Sepulveda MD [Primary Care Provider] - 1-2 days
[2021-12-17 18:52] LABS: INR 0.9 (<1.2); Partial Thromboplastin Time 24.5 sec (22.0-30.0); Prothrombin Time 10.2 sec (9.0-12.0)
[2021-12-17 18:56] LABS: Albumin 4.1 g/dL (3.5-5.0); Calcium 9.1 mg/dL (8.4-10.2); Magnesium 1.7 mg/dL (1.6-2.3); Total Bilirubin 0.3 mg/dL (0.2-1.3); Total Protein 6.8 g/dL (6.3-8.2)
[2021-12-17 18:58] LABS: Basophils % (A) 0 %; Eosinophils # (A) 0.1 k/uL (0-0.7); Eosinophils % (A) 1 %; HCT 39.4 % (34.0-46.0); HGB 13.4 gm/dL (11.4-16.0); Lymphocytes # (A) 2.7 k/uL (1.0-4.8); Lymphocytes % (A) 31 %; MCH 30.9 pg (25.0-35.0); MCV 90.6 fL (80.0-100.0); Mean Platelet Volume 7.6; Monocytes # (A) 0.5 k/uL (0-1.0); Monocytes % (A) 5 %; Neutrophils # (A) 5.1 k/uL (1.3-7.7); Neutrophils % (A) 59 %; Platelet Count 216 k/uL (150-450); RBC 4.35 m/uL (3.80-5.40); RDW 13.6 % (11.5-15.5); WBC 8.6 k/uL (3.8-10.6)
--- NOTE | 2021-12-17 19:14 | XR ---
EXAMINATION TYPE: XR chest 2V DATE OF EXAM: 12/17/2021 6:37 PM COMPARISON: Chest radiographs from 07/21/2019. TECHNIQUE: XR chest 2V Frontal and lateral views of the chest. CLINICAL INDICATION:Female, 76 years old with history of Chest Pain; FINDINGS: Lungs/Pleura: There is flattening of the diaphragm with increased lucency of the lungs. No evidence o f pneumothorax, pleural effusion or focal consolidation. Pulmonary vascularity: Unremarkable. Heart/mediastinum: Cardiomediastinal silhouette is unremarkable. Atherosclerotic calcifications are seen in the aorta. Musculoskeletal: No acute osseous pathology. IMPRESSION: 1. No acute cardiopulmonary disease process. 2. COPD changes.
[2021-12-17 22:04] VITALS: BP 133/68
[2021-12-17 22:26] VITALS: PULSE 72; TEMP 97.8
== END 2021-12-17 22:28 | disposition home or self-care (01) ==
LOC: EC 17:46
DX: R07.89 Other chest pain (principal); J45.909 Unspecified asthma, uncomplicated; E78.5 Hyperlipidemia, unspecified; M19.90 Unspecified osteoarthritis, unspecified site; Z87.891 Personal history of nicotine dependence; Z88.2 Allergy status to sulfonamides; Z88.5 Allergy status to narcotic agent; Z88.6 Allergy status to analgesic agent
CPT/HCPCS: 36415; 71046; 80053; 83735; 84484; 85025; 85610; 85730; 93005; 99284

== ENCOUNTER → 2022-06-16 | Outpatient (CLI) | payer MEDICARE ==
--- NOTE | 2022-06-17 09:40 | MM ---
Reason for Exam: Screening (asymptomatic). Last mammogram was performed 1 year(s) and 3 month(s) ago. Patient History: Menarche at age 10. First Full-Term at age 19. Left ovary removed at age 47. Right ovary removed at age 47. Hysterectomy at age 47. Postmenopausal. Other cancer, age 49. Estrogen for 15 years until age 60. 08/10/2007, Excisional Biopsy on the Left side. 05/30/1998, Excisional Biopsy on the Left side. 05/30/1998, Benign Excisional Biopsy on the left side. Paternal cousin had breast cancer, age 16. Risk Values: Nadia 5 year model risk: 2.6%. NCI Lifetime model risk: 4.9%. Prior Study Comparison: 01/24/2019 Bilateral Screening Mammogram, [facility]. 03/28/2020 Bilateral Screening Mammogram, [facility]. 04/11/2021 Bilateral Screening Mammogram, [facility]. Tissue Density: There are scattered fibroglandular densities. Findings: Analyzed By CAD. Stable distortion upper aspect left breast. Occasional scattered tiny benign-appearing round calcification bilaterally is redemonstrated. There is no suspicious group of microcalcifications or new suspicious mass in either breast. Overall Assessment: Benign, BI-RAD 2 Management: Screening Mammogram of both breasts in 1 year. . Patient should continue monthly self-breast exams. A clinical breast exam by your physician is recommended on an annual basis. This exam should not preclude additional follow-up of suspicious palpable abnormalities. Note on Nadia scores and lifetime risk: 1. A Nadia score greater than 3% is considered moderate risk. If this is the case, consider specialist referral to assess eligibility for a risk reducing agent. 2. If overall lifetime risk for the development of breast cancer is 20% or higher, the patient may qualify for future screening with alternating mammogram and breast MRI. Electronically signed and approved by: Colby Go M.D.
== END | disposition home or self-care (01) ==
LOC: RADMAMWWP 10:52
PROVIDERS: ATTEND Specialist
DX: Z12.31 Encounter for screening mammogram for malignant neoplasm of breast (principal); Z78.0 Asymptomatic menopausal state; Z90.710 Acquired absence of both cervix and uterus; Z80.3 Family history of malignant neoplasm of breast
CPT/HCPCS: 77063; 77067

== ENCOUNTER → 2022-09-11 | Outpatient (CLI) | payer MEDICARE ==
--- NOTE | 2022-09-11 19:21 | US ---
EXAMINATION TYPE: US thyroid st tissue head/neck DATE OF EXAM: 09/11/2022 COMPARISON: 04/11/2021 CLINICAL INDICATION: Female, 77 years old with history of E04.1 SINGLE THYROID NODULE; thy GLAND SIZE: Right Lobe: 5.4 x 1.6 x 1.5 cm Overall Parenchyma: homogenous Left Lobe: 4.6 x 1.5 x 1.6 cm Overall Parenchyma: homogeneous Isthmus Thickness: cm NODULES RIGHT: # of nodules measured on right: sub centimeter LEFT: # of nodules measured on left: Sub centimeter measured largest. 1. .9 X .6 x .7 cm, lower medial, Prior size: .7 x .4 x .6 cm TIRADS Score: 0 TIRADS Category 1: Benign Composition: Cystic or almost completely cystic (0 points). Recommendation: No FNA ISTHMUS: # of nodules measured in the isthmus: .3 Bilateral neck scanned, no evidence of lymphadenopathy. IMPRESSION: No clinically significant nodules.
--- NOTE | 2022-09-12 08:08 | BD ---
EXAMINATION TYPE: Axial Bone Density DATE OF EXAM: 09/11/2022 CLINICAL HISTORY: 77 years old Female. ICD-10 CODE: M85.80 disorder of bone density Height: 66.25 Weight: 194 FRAX RISK QUESTIONS: Family History (Parent hip fracture): no History of Fracture in Adulthood: yes foot Secondary Osteoporosis: no Rheumatoid Arthritis: yes RISK FACTORS HISTORY OF: Family History of Osteoporosis: yes, both parents ,sister and brother, aunt maternal Active: yes Diet low in dairy products/other sources of calcium: no Postmenopausal woman: yes, 52 Lost more than 2 inches in height since high school: yes Frequent falls: no MEDICATIONS: Osteoporosis Medications: yes Which medication: Reclast How Lon years Additional Medications: yes vit d Additional History: yes radiation to earlobe for keloid EXAM MEASUREMENTS: Bone mineral densitometry was performed using the [employer] System. Bone mineral density as measured about the Lumbar spine is: ----- L1-L4(G/cm2): 1.233 T Score Values are as follows: ----- L1: 0.4 ----- L2: 0.0 ----- L3: 0.4 ----- L4: 0.6 ----- L1-L4: 0.4 Z Score Values are as follows: ----- L1: 1.5 ----- L2: 1.0 ----- L3: 4.5 ----- L4: 1.6 ----- L1-L4: 1.5 Bone mineral density has: Increased 0.7% since study of: 02/20/2020 Bone mineral density about the R hip (g/cm2): 0.991 Bone mineral density about the L hip (g/cm2): 0.991 T Score values are as follows: -----R Neck: -1.0 -----L Neck: -1.3 -----R Total: -0.1 -----L Total: -0.1 Z Score values are as follows: -----R Neck: 0.6 -----L Neck: 0.3 -----R Total: 1.2 -----L Total: 1.2 Bone mineral density has: Increased 7.3% since study of: 02/20/2020 FRAX%s: The graph provided illustrates a 21.5% chance for a major osteoporotic fx and a 4.3% chance f or the hips probability for fx in 10 years time. IMPRESSION: Osteopenia (T Score between -2.5 and -1). There is slightly increased risk of fracture and the patient may be considered for treatment. Re-Screen 2-5 years. NOTE: T-SCORE=SD OF THE YOUNG ADULT MEAN.
== END | disposition home or self-care (01) ==
LOC: RADBDWWP 14:49
PROVIDERS: ATTEND Family Medicine
DX: M85.89 Other specified disorders of bone density and structure, multiple sites (principal); E04.1 Nontoxic single thyroid nodule
CPT/HCPCS: 76536; 77080

== ENCOUNTER → 2023-10-25 | Outpatient (CLI) | payer MEDICARE ==
--- NOTE | 2023-10-25 10:22 | MM ---
Reason for Exam: Screening (asymptomatic). Last mammogram was performed 1 year(s) and 4 month(s) ago. Patient History: Menarche at age 10. First Full-Term at age 19. Left ovary removed at age 47. Right ovary removed at age 47. Hysterectomy at age 47. Postmenopausal. Other cancer, age 49. Estrogen for 15 years until age 60. 08/10/2007, Excisional Biopsy on the Left side. 05/30/1998, Excisional Biopsy on the Left side. 05/30/1998, Benign Excisional Biopsy on the left side. Paternal cousin had breast cancer, age 16. Risk Values: Nadia 5 year model risk: 2.5%. NCI Lifetime model risk: 4.1%. Prior Study Comparison: 03/28/2020 Bilateral Screening Mammogram, [facility]. 04/11/2021 Bilateral Screening Mammogram, [facility]. 06/16/2022 Bilateral MG 3D screening mammo w/cad, [facility]. Tissue Density: There are scattered areas of fibroglandular density. Findings: Analyzed By CAD. There is no suspicious group of microcalcifications or new suspicious mass in either breast. Stable distortion left breast. Overall Assessment: Benign, BI-RAD 2 Management: Screening Mammogram of both breasts in 1 year. . Patient should continue monthly self-breast exams. A clinical breast exam by your physician is recommended on an annual basis. This exam should not preclude additional follow-up of suspicious palpable abnormalities. Note on Nadia scores and lifetime risk: 1. A Nadia score greater than 3% is considered moderate risk. If this is the case, consider specialist referral to assess eligibility for a risk reducing agent. 2. If overall lifetime risk for the development of breast cancer is 20% or higher, the patient may qualify for future screening with alternating mammogram and breast MRI. Electronically signed and approved by: Choco Evans M.D. Radiologis
== END | disposition home or self-care (01) ==
LOC: RADMAMWWP 07:54
PROVIDERS: ATTEND Family Medicine
DX: Z12.31 Encounter for screening mammogram for malignant neoplasm of breast
CPT/HCPCS: 77063; 77067

== ENCOUNTER → 2024-03-01 | Outpatient (CLI) | payer MEDICARE ==
--- NOTE | 2024-03-01 08:36 | XR ---
EXAMINATION TYPE: XR foot complete RT DATE OF EXAM: 03/01/2024 7:30 AM COMPARISON: None. CLINICAL INDICATION: Female, 78 years old with history of M79.671 PAIN IN RIGHT FOOT S92.911A UNSP FR ACTURE, pain TECHNIQUE: 3 view(s) obtained. FINDINGS: There is some subtle cortical lucency at the proximal metaphyseal proximal phalanx third digit. Fract ure is suspected. Correlate with location of the patient's pain. No additional areas suspicious for acute fracture identified. Soft tissues are normal. IMPRESSION: 1. Fracture at the base of the proximal phalanx third digit [facility], , 03/01/2024 8:34 AM
== END | disposition home or self-care (01) ==
LOC: RADXRMAIN 07:12
PROVIDERS: ATTEND Podiatrist Primary Podiatric Medicine
DX: S92.911A Unspecified fracture of right toe(s), initial encounter for closed fracture (principal); M79.671 Pain in right foot

== ENCOUNTER → 2024-06-14 | Outpatient (CLI) | payer MEDICARE ==
--- NOTE | 2024-06-14 10:41 | US ---
EXAMINATION TYPE: US thyroid st tissue head/neck DATE OF EXAM: 06/14/2024 COMPARISON: 09/11/2022 CLINICAL INDICATION: Female, 78 years old with history of E04.1 NONTOXIC SINGLE THYROID NODULE; Thyro id nodules TECHNIQUE: Grayscale and color Doppler imaging of the thyroid gland. FINDINGS: GLAND SIZE: Right Lobe: 5.5 x 2.0 x 1.3 cm Overall Parenchyma: homogeneous Left Lobe: 5.3 x 1.5 x 1.5 cm Overall Parenchyma: homogeneous Isthmus Thickness: .2 cm NODULES RIGHT: # of nodules measured on right: 0 LEFT: # of nodules measured on left: Subcentimeter electronic device repairer the largest. 1. .7 X .4 x .7 cm, lower medial, cystic or almost completely cystic, TR 3 nodule, which is wider t velazquez tall, with smooth margins, without echogenic foci. Prior size: .9 x .6 x .7 cm. While smaller in size, now containing some internal complexity. ISTHMUS: # of nodules measured in the isthmus: 0 Bilateral neck scanned, no evidence of lymphadenopathy. IMPRESSION: 1. Borderline to mild thyromegaly, possible goiter. 2. Mildly complex cystic TR3 nodule at the left lower pole. While smaller now 7 mm versus 9 mm, previ ously, there is new internal complexity. Given these changes, recommend follow-up ultrasound in 6-12 months to reassess. [facility], , 06/14/2024 10:39 AM
== END | disposition home or self-care (01) ==
LOC: RADUSWWP 09:51
PROVIDERS: ATTEND Family Medicine
DX: E01.0 Iodine-deficiency related diffuse (endemic) goiter (principal)
CPT/HCPCS: 76536